=== PATIENT | male | born 1945 | race Caucasian/White ===

== ENCOUNTER 2017-07-21 13:33 | Emergency (ER) | payer OTHER ==
[2017-07-21 13:49] VITALS: BP 117/63
--- NOTE | 2017-07-23 10:02 | UC ---
Johny Bernal Elizabeth, scribed for Mai Alcantara DO on 07/21/17 at 1409 . Head Injury HPI - HPI Summary HPI Summary: This patient is a 71 year old M presenting to [facility] with a chief complaint of head injury and scalp laceration since 03:00 this morning. The patient reports that he got up at 03:00 to use the bathroom and he lost consciousness and fell. The patient is unsure how long he lost consciousness or what he hit his head on. The patient rates the pain 1/10 in severity. Symptoms aggravated by nothing. Symptoms alleviated by nothing. Patient reports neck pain. Patient denies headache, vision changes, dizziness, nausea, vomiting, hearing changes, and fatigue. The patient started amoxicillin 1 day ago for probable lyme disease and reports dizziness and 104 degree fever yesterday. - History Of Current Complaint Chief Complaint: UCHeadInjury Stated Complaint: FACE LACERATIONS Time Seen by Provider: 07/21/17 13:58 Hx Obtained From: Patient Mechanism Of Injury: fall from standing position Onset/Duration: Sudden Onset, Lasting Hours - since 03:00, Still Present Severity Currently: Mild Severity Initially: Mild Pain Intensity: 1 Pain Scale Used: 0-10 Numeric Aggravating Factor(s): Nothing Alleviating Factor(s): Nothing Associated Signs And Symptoms: Positive: LOC Duration Unknown, Neck Pain. Negative: Nausea, Vomiting - Allergies/Home Medications Allergies/Adverse Reactions: Allergies Allergy/AdvReac Type Severity Reaction Status Date / Time aspirin Allergy Nausea Verified 07/21/17 13:51 morphine Allergy Nausea Verified 07/21/17 13:51 NSAIDS (Non-Steroidal Allergy Nausea And Verified 07/21/17 13:50 Anti-Inflamma Vomiting sulfamethoxazole Allergy Unknown Verified 07/21/17 13:51 [From Bactrim] Reaction Details trimethoprim [From Bactrim] Allergy Unknown Verified 07/21/17 13:51 Reaction Details GLUTEIN FREE Allergy HELPS -= Uncoded 05/13/14 11:02 NOT A REAL ALLERGY Home Medications: Home Medications Amoxicillin 500 mg PO 07/21/17 [History] PMH/Surg Hx/FS Hx/Imm Hx Other Endocrine History: RA - Surgical History Surgical History: Yes Surgery Procedure, Year, and Place: KNEE SURGERY 4 (1- Rt & 2 Lt) TIMES,. 2001 RIGHT KNEE SURGERY, [facility] [place]. 2012 LEFT KNEE SURGERY TO REMOVE BONE SPUR, [facility] [place]. 1985 LEFT KNEE SURGERY, [place]. 2003 LEFT INGUINAL HERNIA REPAIR, [facility] [place] - Family History Known Family History: Positive: Other - CA of various types - Social History Alcohol Use: None Substance Use Type: None Smoking Status (MU): Never Smoked Tobacco - Immunization History Most Recent Influenza Vaccination: 2012 Most Recent Tetanus Shot: 2009 Most Recent Pneumonia Vaccination: 2011 Review of Systems Eyes: Negative - NEGATIVE BLURRED VISION Gastrointestinal: Negative - NEGATIVE VOMITING, NEGATIVE NAUSEA Musculoskeletal: Other: - neck pain Neurological: Negative - NEGATIVE HEADACHE, NEGATIVE DIZZINESS, NEGATIVE VISION CHANGES, NEGATIVE HEARING CHANGES All Other Systems Reviewed And Are Negative: Yes Physical Exam - Summary Physical Exam Summary: Appearance: Well-Appearing, No Pain Distress, Well-Nourished Eyes: conjunctiva clear, no discharge ENT: Hearing grossly normal, no muffled/hoarse voice. Neck: Normal, Supple Head: 3 scabbed over lacerations on left forehead Respiratory/Lung Sounds: Lungs clear, Normal breath sounds, No respiratory distress, No accessory muscle use Cardiovascular: RRR, No murmur Musculoskeletal: Normal Neurological: A&Ox3, CN II-XII INTACT, SENSORY MOTOR INTACT, REFLEXES INTACT, NO CEREBELLAR SIGNS, FACIAL SYMMETRY, NEGATIVE ROMBERG, NORMAL GAIT Psychiatric: Normal, age appropriate behavior Skin: Normal, Warm, Dry, Normal color Triage Information Reviewed: Yes Vital Signs: Initial Vital Signs Temp 98.5 F 07/21/17 13:41 Pulse 77 07/21/17 13:41 Resp 16 07/21/17 13:41 BP 117/63 07/21/17 13:41 Pulse Ox 99 07/21/17 13:41 Vital Signs Reviewed: Yes Head Injury Course/Dx - Course Course Of Treatment: This patient is a 71 year old M reporting head injury and scalp laceration after losing consciousness and falling at 03:00. The lacerations have scabbed over at time of evaluation. Due to the patients head injury and scalp laceration, a CT Brain is required. Since CT is unavailable her today, the patient will be discharged and is urged to go to the ER for a CT scan. The patient is agreeable with this plan. Medications reviewed. Allergies reviewed. - Differential Dx/Diagnosis Provider Diagnoses: laceration, syncope, cervical strain, geriatric head injury Discharge - Sign-Out/Discharge Documenting (check all that apply): Discharge/Admit/Transfer - Discharge Plan Condition: Stable Disposition: HOME Discharge Disposition Comment: discharge home Patient Education Materials: Lyme Disease (ED), Cervical Strain (ED), Laceration (ED), Syncope (ED), Head Injury (ED) Referrals: Santos Haas MD [Primary Care Provider] - Additional Instructions: It is standard of care for anyone over the age of 65 with a head injury to receive a CT scan of the brain. Please go to the ER immediately for further evaluation and treatment. The documentation as recorded by the Johny stevens Elizabeth accurately reflects the service I personally performed and the decisions made by , Mai Alcantara DO.
== END 2017-07-21 14:33 | disposition home or self-care (01) ==
LOC: UCEAST 13:33
DX: S01.01XA Laceration without foreign body of scalp, initial encounter (principal); S16.1XXA Strain of muscle, fascia and tendon at neck level, initial encounter; S09.90XA Unspecified injury of head, initial encounter; W18.30XA Fall on same level, unspecified, initial encounter; Y93.89 Activity, other specified; Y92.009 Unspecified place in unspecified non-institutional (private) residence as the place of occurrence of the external cause; R55 Syncope and collapse; M06.9 Rheumatoid arthritis, unspecified; Z88.6 Allergy status to analgesic agent; Z88.5 Allergy status to narcotic agent; Z88.2 Allergy status to sulfonamides; Z80.9 Family history of malignant neoplasm, unspecified
CPT/HCPCS: 99212; G0463

== ENCOUNTER 2017-07-21 17:08 | Emergency (ER) | payer OTHER ==
--- NOTE | 2017-07-21 18:24 | RAD ---
HISTORY: Fall w/ head injury COMPARISONS: July 18, 2011 TECHNIQUE: Multiple contiguous axial CT scans were obtained of the head without intravenous contrast. FINDINGS: HEMORRHAGE/INFARCT: There is no hemorrhage or acute infarct. MASSES/SHIFT: There is no mass or shift. EXTRA-AXIAL SPACES: There are no extra-axial fluid collections. SULCI AND VENTRICLES: The sulci and ventricles are normal in size and position for the patient's stated age. CEREBRUM: There are no focal parenchymal abnormalities. BRAINSTEM: There are no focal parenchymal abnormalities. CEREBELLUM: There are no focal parenchymal abnormalities. VESSELS: The vessels are grossly normal. PARANASAL SINUSES: The paranasal sinuses are clear. ORBITS: The orbits are unremarkable. BONES AND SOFT TISSUE: No bone or soft tissue abnormalities are noted. OTHER: None IMPRESSION: NO ACUTE INTRACRANIAL PATHOLOGY.
[2017-07-21 20:39] VITALS: BP 123/74
--- NOTE | 2017-08-07 11:10 | ED ---
Rick Bernal Gabriel, scribed for Harry Mcelroy MD on 07/21/17 at 1948 . Head Injury - HPI Summary HPI Summary: This patient is a 71 year old M presenting to [facility] s/p fall that occurred last night at 0300. Pt states last night he got up to urinate, felt dizzy but began urinating when he felt faint and fell. Pt hit his head but his is unsure if it was on the floor or a door frame. He denies total LOC. The patient rates the pain 2/10 in severity. Pt states he has had concussions in the past but has had no sx such as feeling out of it that accompanied prior ones. Pt states he believes has lyme due to recent neck stiffness, fever, and chills. His temp was 104 last night. Pt saw his PCP for these sx and was given amoxicillin and he began taking that yesterday. Pt was seen as [facility] [employer] and sent here for a CT. - History Of Current Complaint Chief Complaint: EDHeadInjury Stated Complaint: HEAD INJURY Time Seen by Provider: 07/21/17 19:38 Hx Obtained From: Patient Mechanism Of Injury: Fall From A Standing Position Onset/Duration: Still Present Onset of Pain: Immediate Severity Currently: Mild Severity Initially: Mild Pain Intensity: 2 Pain Scale Used: 0-10 Numeric Associated Signs And Symptoms: Other: - near LOC - Allergies/Home Medications Allergies/Adverse Reactions: Allergies Allergy/AdvReac Type Severity Reaction Status Date / Time aspirin Allergy Nausea Verified 07/21/17 17:16 morphine Allergy Nausea Verified 07/21/17 17:16 NSAIDS (Non-Steroidal Allergy Nausea And Verified 07/21/17 17:16 Anti-Inflamma Vomiting sulfamethoxazole Allergy Unknown Verified 07/21/17 17:16 [From Bactrim] Reaction Details trimethoprim [From Bactrim] Allergy Unknown Verified 07/21/17 17:16 Reaction Details GLUTEIN FREE Allergy HELPS -= Uncoded 07/21/17 17:16 NOT A REAL ALLERGY PMH/Surg Hx/FS Hx/Imm Hx Endocrine/Hematology History: Denies: Hx Diabetes Cardiovascular History: Reports: Hx Syncope Denies: Hx Embolism, Hx Hypertension, Hx Pacemaker/ICD Respiratory History: Denies: Hx Asthma History: Denies: Hx Renal Disease Musculoskeletal History: Reports: Hx Arthritis - MANY JOINTS PROBLEMS, WITH KNEES AND ANKLES, Hx Rheumatoid Arthritis Sensory History: Reports: Hx Contacts or Glasses, Hx Glaucoma Denies: Hx Hearing Aid Opthamlomology History: Reports: Hx Contacts or Glasses, Hx Glaucoma Psychiatric History: Denies: Hx Panic Disorder - Surgical History Surgery Procedure, Year, and Place: KNEE SURGERY 4 (1- Rt & 2 Lt) TIMES,. 2001 RIGHT KNEE SURGERY, [facility] [place]. 2012 LEFT KNEE SURGERY TO REMOVE BONE SPUR, [facility] [place]. 1985 LEFT KNEE SURGERY, [place]. 2003 LEFT INGUINAL HERNIA REPAIR, [facility] [place] Hx Anesthesia Reactions: Yes - SPINAL - DID NOT WORK X 2 - Immunization History Date of Tetanus Vaccine: PT STATES UNSURE Date of Influenza Vaccine: NONE Immunizations Up to Date: Yes Infectious Disease History: No Infectious Disease History: Denies: Traveled Outside the [place] in Last 30 Days - Family History Known Family History: Negative: Respiratory Disease, Seizure Disorder - Social History Alcohol Use: None Substance Use Type: Reports: None Smoking Status (MU): Never Smoked Tobacco Review of Systems Positive: Fever, Chills, Other - fall w/ head injury Positive: Other - neck stiffness Neurological: Negative - LOC Positive: Syncope - near All Other Systems Reviewed And Are Negative: Yes Physical Exam - Summary Physical Exam Summary: Appearance: Well-appearing, no distress, Well-nourished Skin:There is a 2cm superficial abrasion, no bleeding. There is also a 4cm superficial abrasion above left eyebrow without bleeding, that is not tender or swollen. Head: Normal Head/Face inspection Eyes: Conjunctiva clear ENT: Normal inspection Neck: Supple, no nodes, no JVD. Respiratory: Lungs clear, Normal breath sounds, no respiratory distress Cardio: RRR, No murmur, pulses normal, brisk capillary refill Abdomen: soft, nontender, no guarding, no rebound Bowel sounds: present Musculoskeletal: Strength Intact/ ROM intact. No calf tenderness. No edema. Neuro: Alert, muscle tone normal, facial symmetry, speech normal, sensory/motor intact Psychological: Normal Triage Information Reviewed: Yes Vital Signs On Initial Exam: Initial Vitals Temp Pulse Resp BP Pulse Ox 99.2 F 70 16 138/81 98 07/21/17 17:12 07/21/17 17:12 07/21/17 17:12 07/21/17 17:12 07/21/17 17:12 Vital Signs Reviewed: Yes Diagnostics - Vital Signs Vital Signs Temp Pulse Resp BP Pulse Ox 07/21/17 17:12 99.2 F 70 16 138/81 98 - Laboratory Lab Statement: Any lab studies that have been ordered have been reviewed, and results considered in the medical decision making process. - CT CT brain CT Interpretation Completed By: Radiologist - NO ACUTE INTRACRANIAL PATHOLOGY. ED physician has reviewed this radiology report. Head Injury Course/Dx - Diagnoses Provider Diagnoses: Abrasion Discharge - Sign-Out/Discharge Documenting (check all that apply): Discharge/Admit/Transfer - Discharge Plan Condition: Stable Disposition: HOME Patient Education Materials: Abrasion (ED) Referrals: Santos Haas MD [Primary Care Provider] - 3 Days Additional Instructions: RETURN TO THE ER FOR ANY NEW OR WORSENING SYMPTOMS The documentation as recorded by the Rick stevens Gabriel accurately reflects the service I personally performed and the decisions made by Lilibeth cox Omari A, MD.
== END 2017-07-21 20:36 | disposition home or self-care (01) ==
LOC: ED 17:08
DX: S00.81XA Abrasion of other part of head, initial encounter (principal); W18.39XA Other fall on same level, initial encounter; Y92.002 Bathroom of unspecified non-institutional (private) residence as the place of occurrence of the external cause; R55 Syncope and collapse; R42 Dizziness and giddiness; Z79.899 Other long term (current) drug therapy; Z88.5 Allergy status to narcotic agent; Z88.6 Allergy status to analgesic agent; Z88.8 Allergy status to other drugs, medicaments and biological substances; M06.9 Rheumatoid arthritis, unspecified
CPT/HCPCS: 70450; 99282

== ENCOUNTER → 2018-03-11 05:38 | Day surgery (SDC) | payer OTHER ==
[~2018-03-11 05:38] MED LIST: Buffered Lidocaine 1% SYRIN* 1 ML/SYRINGE INTRADERM ONE; Bupivacaine 0.5% W/EPI SDV* 30 ML VIAL ONE; Dexamethasone TAB* 4 MG ONE; Dexamethasone TAB* 4 MG PO ONE; DiMENhydriNATE IV* 50 MG/ML VIAL IV PUSH PRN; Famotidine IV* 10 MG/ML 2 ML (20 mg) ONE; Famotidine TAB* 20 MG ONE; HYDROmorphone INJ1* 1 MG/ML SYRINGE IV PRN; KETAMINE HCL* 50 MG/ML 10 ML VIAL ONE; Lactated Ringers 1000 ML Bag* 1,000 ML IV SCH; Lidocaine 1% INJ* 10 MG/ML 30 ML SDV ONE; Lidocaine 2% PF * 5 ML VIAL ONE; Midazolam* 1 MG/ML 5 ML VIAL (5 MG) ONE; Naloxone* 0.4 MG/ML 1 ML VIAL IV PRN; Ondansetron INJ* 2 MG/ML VIAL IV ONE; Ondansetron ODT TAB* 4 MG ONE; PROCHLORPERAZINE INJ 5 MG/ML 2 ML VIAL IV PRN; Propofol* 500 MG/50 ML BTL ONE; ceFAZolin 2 GM PREMIX in ORs 2 GM/50 ML BAG IVPB ONE; fentaNYL* 50 MCG/ML 2 ML VIAL (100 MCG VIAL) IV PRN; fentaNYL* 50 MCG/ML 2 ML VIAL (100 MCG VIAL) ONE; oxyCODONE/Acetamin 5/325 MG* TAB PO PRN
[2018-03-11 10:57] VITALS: BP 153/90
--- NOTE | 2018-03-11 20:37 | OP ---
DATE OF OPERATION: 03/11/18 - [facility] DATE OF : 49 SURGEON: Willian Leal MD SLOT SERVICE SPECIALIST: Nita Samaniego NP ANESTHESIOLOGIST: Dr. Moe. ANESTHESIA: Local with monitored anesthesia care. PRE-OP DIAGNOSIS: Right inguinal hernia. POST-OP DIAGNOSIS: Right indirect inguinal hernia. OPERATIVE PROCEDURE: Open repair with mesh of a right indirect inguinal hernia. ESTIMATED BLOOD LOSS: Minimal. WOUND CLASSIFICATION: 1. COMPLICATIONS: None. DRAINS: None. SPECIMENS: None. DESCRIPTION OF PROCEDURE: Written informed consent was obtained, the right groin was marked with indelible ink and preoperative antibiotics were administered. The patient was taken to the operating room, placed in the supine position. Sequential compression devices and a warming blanket were applied. The right groin and lower abdomen were prepped and draped in usual sterile fashion. Time-out verification was completed. Initially, 0.25% Marcaine with epinephrine was infiltrated in the right groin and an oblique incision was made several fingerbreadths above the inguinal crease. Velma's fascia was divided and the external oblique aponeurosis was identified and opened in the direction of its fibers. The spermatic cord was encircled with 1 quarter-inch Artem drain at the pubic tubercle. With care, the direct space was evaluated. This appeared to be intact. The cord structures were then identified and with careful dissection of the cord , we were able to identify a rather large indirect inguinal hernia sac protruding down through the internal ring. This was from the structures up into the internal ring and reduced without difficulty. Next, the pre-cut Covidien ProGrip mesh was then placed and sutured to the pubic tubercle with a single 0 Vicryl suture. It was then placed in usual fashion to cover the direct and indirect space. I did cut this down slightly to fit his anatomy. No further sutures were placed. Hemostasis was assured. Additional Marcaine was infiltrated. The external oblique aponeurosis was closed with a running 3- 0 Vicryl suture. Velma's fascia was closed with a running 3-0 Vicryl suture. The skin was approximated with subcuticular 4-0 Vicryl suture. Steri-Strips and sterile dressings were applied. The patient tolerated the procedure well and was taken to the recovery room in stable condition. [id number]/[facility] #: [id number] [place]
== END | disposition home or self-care (01) ==
LOC: OR 05:38
PROVIDERS: ATTEND Surgery
DX: K40.90 Unilateral inguinal hernia, without obstruction or gangrene, not specified as recurrent (principal); L40.50 Arthropathic psoriasis, unspecified
CPT/HCPCS: A9270-GY; C1781; J0690; J2250; J2704; J3010; J8540

== ENCOUNTER 2019-11-16 18:40 | Observation (INO) ==
[2019-11-16 19:31] LABS: ABS Eosinophils 0.1 10^3/ul (0-0.6); ABS Lymphocytes 1.3 10^3/ul (1.0-4.8); ABS Monocytes 0.4 10^3/ul (0-0.8); ABS Neutrophils 5.8 10^3/ul (1.5-7.7); Eosinophil % 1.2 %; Hematocrit 41 % (42-52); Lymphocyte % 17.1 %; Mean Corpuscular HGB Conc 34 g/dL (31-36); Mean Corpuscular Hemoglobin 31 pg (27-31); Mean Corpuscular Volume 92 fL (80-94); Mean Platelet Volume 7.3 fL (7.4-10.4); Platelet Count 287 10^3/uL (150-450); Red Blood Count 4.47 10^6 /uL (4.18-5.48); Red Cell Distribution Width 15 % (10-15); White Blood Count 7.6 10^3/uL (3.5-10.8)
[2019-11-16 19:38] LABS: Activated Partial Thrombo Time 32.9 seconds (26.0-38.0); INR 1.16 (0.82-1.09)
[2019-11-16 19:51] LABS: Albumin 3.6 g/dL (3.2-5.2); Albumin/Globulin Ratio 0.9 (1-3); BUN/Creatinine Ratio 16.5 (8-20); Calcium 9.3 mg/dL (8.6-10.3); EGFR African American 86.1 (>60); EGFR Non-African American 71.2 (>60); Globulin 4.2 g/dL (2-4); Magnesium 2.1 mg/dL (1.9-2.7); Potassium 3.8 mmol/L (3.5-5.0); Total Bilirubin 0.4 mg/dL (0.2-1.0); Total Protein 7.8 g/dL (6.4-8.9)
[2019-11-16 19:53] LABS: Troponin I 0.01 ng/mL (<0.03)
[2019-11-16 20:20] LABS: TSH Ultra Thyroid Stim Horm 4.71 mcIU/mL (0.34-5.60)
[2019-11-16] MEDS ORDERED: Ondansetron 4 mg VIAL 2 MG/ML 2 ml VIAL IV PRN (21:21)
[2019-11-16] MEDS: NS 0.9% 1000 ml BAG 1,000 ML IV SCH (22:26)
[2019-11-17] MEDS ORDERED: Potassium Chlor 20 meq TAB.ER PO ONE (08:22)
[2019-11-17 10:07] LABS: HDL Cholesterol 54.5 mg/dL
[2019-11-17] MEDS ORDERED: Midazolam 5 mg/5 ml VIAL 1 mg/ml 5 ml VIAL (5 mg) ONE (12:07)
[2019-11-17] MEDS ORDERED: Flumazenil 0.5 mg/5 ml 0.1 MG/ML 5 ml VIAL ONE (12:07)
[2019-11-17] MEDS ORDERED: Naloxone 0.4 mg VIAL 0.4 mg/ml 1 ml VIAL ONE (12:07)
[2019-11-17] MEDS ORDERED: fentaNYL 100 mcg/2 ml 50 MCG/ML VIAL ONE (12:07)
[2019-11-17] MEDS: NS 0.9% 1000 ml BAG 1,000 ML IV SCH (15:17)
[2019-11-17 17:35] VITALS: BP 105/60
== END 2019-11-17 17:00 | disposition home or self-care (01) ==
LOC: MEDTELE 18:40 → ED 18:40 → MEDTELE 22:38
PROVIDERS: ADMIT Internal Medicine; ATTEND Internal Medicine

== ENCOUNTER 2020-02-12 00:03 | Inpatient (IN) ==
[2020-02-12] MEDS ORDERED: NS 0.9% 1000 ml BAG 2,000 ML IV ONE (01:00)
[2020-02-12 02:37] LABS: ABS Lymphocytes 1.2 10^3/ul (1.0-4.8); ABS Monocytes 0.5 10^3/ul (0-0.8); ABS Neutrophils 6.6 10^3/ul (1.5-7.7); Eosinophil % 0.2 %; Hematocrit 41 % (42-52); Hemoglobin 14.1 g/dL (14.0-18.0); Lymphocyte % 14.4 %; Mean Corpuscular HGB Conc 34 g/dL (31-36); Mean Corpuscular Hemoglobin 31 pg (27-31); Mean Corpuscular Volume 91 fL (80-94); Mean Platelet Volume 8.2 fL (7.4-10.4); Platelet Count 304 10^3/uL (150-450); Red Cell Distribution Width 14 % (10-15); White Blood Count 8.3 10^3/uL (3.5-10.8)
[2020-02-12 02:44] LABS: Albumin 3.9 g/dL (3.2-5.2); Anion Gap 9 mmol/L (2-11); CO2 Carbon Dioxide 29 mmol/L (22-32); Calcium 9.4 mg/dL (8.6-10.3); Chloride 96 mmol/L (101-111); Sodium 134 mmol/L (135-145)
[2020-02-12 02:50] LABS: ALT 11 U/L (7-52); AST 15 U/L (13-39); Activated Partial Thrombo Time 26.9 seconds (26.0-38.0); Albumin/Globulin Ratio 0.8 (1-3); Alkaline Phosphatase 69 U/L (34-104); BUN/Creatinine Ratio 18.3 (8-20); Blood Urea Nitrogen 17 mg/dL (6-24); C Reactive Protein 1.85 mg/L (<8.01); EGFR African American 96.6 (>60); EGFR Non-African American 79.9 (>60); Globulin 4.6 g/dL (2-4); Glucose 97 mg/dL (70-100); INR 1.18 (0.82-1.09); Total Protein 8.5 g/dL (6.4-8.9)
[2020-02-12 02:51] LABS: Troponin I 0.02 ng/mL (<0.03)
[2020-02-12 05:19] LABS: Urine Appearance Clear; Urine Bilirubin Negative (Negative); Urine Blood 1+ (Negative); Urine Color Yellow; Urine Glucose Negative (Negative); Urine Ketones 1+ (Negative); Urine Nitrite Negative (Negative); Urine Protein Negative (Negative); Urine Specific Gravity 1.023 (1.010-1.030); Urine Urobilinogen Negative (Negative)
[2020-02-12 05:22] LABS: Urine Bacteria Absent (Absent); Urine Red Blood Cell 1+(3-5/hpf) (Absent); Urine Squamous Epithelial Cell Present (Absent); Urine White Blood Cell Trace(0-5/hpf) (Absent)
[2020-02-12] MEDS ORDERED: Al Hydrox/Mg Hydrox/Simet LIQ 30 ML UDC PO PRN (08:52)
[2020-02-12] MEDS ORDERED: Enoxaparin 40 MG/0.4 ML SYR SUBCUT SCH (10:00)
[2020-02-12 12:43] LABS: TSH Ultra Thyroid Stim Horm 4.37 mcIU/mL (0.34-5.60)
[2020-02-12 12:52] LABS: Vitamin B12 602 pg/mL (180-914)
[2020-02-12 13:18] LABS: Thyroid Peroxidase Antibodies < 0.25 IU/mL (<9)
[2020-02-12] MEDS ORDERED: Gadoteridol (CONTRAST) 279.3 MG/ML 10 ML IV ONE (18:06)
[2020-02-12 19:04] LABS: Influenza A Molecular Negative (Negative); Influenza B Molecular Negative (Negative)
[2020-02-12] MEDS ORDERED: levETIRAcetam 1000MG IVPREMIX 1,000 MG/100 ML BAG IVPB ONE (20:30)
[2020-02-12] MEDS ORDERED: NS 0.9% IVPB SCH (21:00)
[2020-02-12] MEDS ORDERED: ACYCLOVIR IVPB SCH (21:00)
[2020-02-12] MEDS ORDERED: methylPREDNISolone 125 mg 1,000 MG in NS 0.9% 100 ml BAG 100 ML IV SCH (21:00)
[2020-02-12] MEDS ORDERED: Acyclovir IV 500 MG/10 ML 100 ML VIAL (500 MG) IVPB SCH (21:00)
[2020-02-12] MEDS: Potassium Chlor 10 meq TAB PO SCH (21:46)
[2020-02-12] MEDS ORDERED: methylPREDNISolone SOD SUCC 1,000 MG in NS 0.9% 100 ml BAG 100 ML IVPB SCH (21:50)
[2020-02-12] MEDS ORDERED: NS 0.9% 1000 ml BAG 1,000 ML IV SCH (22:15)
[2020-02-12] MEDS: Acyclovir IV 600 MG in NS 0.9% 100 ml BAG 100 ML IVPB SCH (22:45)
[2020-02-12] MEDS ORDERED: Pantoprazole VIAL 40 MG VIAL IV SCH (23:00)
[2020-02-13] MEDS: methylPREDNISolone SOD SUCC 1,000 MG in NS 0.9% 100 ml BAG 100 ML IVPB SCH ×2 (00:45→10:37)
[2020-02-13] MEDS: Acyclovir IV 600 MG in NS 0.9% 100 ml BAG 100 ML IVPB SCH ×3 (05:40→18:38)
[2020-02-13 06:14] LABS: ABS Lymphocytes 0.3 10^3/ul (1.0-4.8); ABS Neutrophils 8.5 10^3/ul (1.5-7.7); Hematocrit 43 % (42-52); Hemoglobin 14.7 g/dL (14.0-18.0); Lymphocyte % 3.6 %; Mean Corpuscular HGB Conc 34 g/dL (31-36); Mean Corpuscular Hemoglobin 31 pg (27-31); Mean Corpuscular Volume 92 fL (80-94); Platelet Count 340 10^3/uL (150-450); Red Blood Count 4.69 10^6 /uL (4.18-5.48); Red Cell Distribution Width 15 % (10-15); White Blood Count 8.8 10^3/uL (3.5-10.8)
[2020-02-13 06:32] LABS: BUN/Creatinine Ratio 17.2 (8-20); Calcium 9.5 mg/dL (8.6-10.3); EGFR African American 104.4 (>60); EGFR Non-African American 86.3 (>60); Potassium 3.7 mmol/L (3.5-5.0)
[2020-02-13] MEDS ORDERED: Potassium Chlor 20 meq TAB.ER PO ONE (07:24)
[2020-02-13] MEDS: levETIRAcetam 500 MG IVPREMIX 500 MG/100 ML BAG IV SCH ×2 (10:11→20:53)
[2020-02-13] MEDS: Cholecalciferol (VIT D3) 1,000 unit TAB PO SCH (10:40)
[2020-02-13] MEDS: Potassium Chlor 10 meq TAB PO SCH ×2 (10:41→20:05)
[2020-02-13] MEDS ORDERED: HYDROmorphone 0.5 MG/0.5 ML SYRINGE IV SLOW PU ONE (11:01)
[2020-02-13] MEDS ORDERED: HYDROmorphone 0.5 MG/0.5 ML SYRINGE ONE (11:06)
[2020-02-13 15:13] LABS: Body Fluid Source Cerebral Spinal
[2020-02-13 15:31] LABS: CSF Glucose 101 mg/dL (40-70)
[2020-02-13] MEDS ORDERED: fentaNYL 100 mcg/2 ml 50 MCG/ML VIAL ONE (16:35)
[2020-02-13 16:46] LABS: Body Fluid Mono 60 %
[2020-02-13] MEDS ORDERED: Ondansetron 4 mg VIAL 2 MG/ML 2 ml VIAL ONE (17:09)
[2020-02-13] MEDS: NS 0.9% 1000 ml BAG 1,000 ML IV SCH (18:23)
[2020-02-13 18:40] LABS: Body Fluid NRBC 0
[2020-02-13 20:19] LABS: Urine Appearance Cloudy; Urine Bacteria Absent (Absent); Urine Bilirubin Negative (Negative); Urine Blood 3+ (Negative); Urine Glucose Negative (Negative); Urine Ketones Negative (Negative); Urine Nitrite Negative (Negative); Urine Protein 2+(100 mg/dL) (Negative); Urine Red Blood Cell 3+(>10/hpf) (Absent); Urine Urobilinogen Negative (Negative); Urine White Blood Cell Absent (Absent)
[2020-02-13 21:14] LABS: Urine Color Red
[2020-02-13 21:18] LABS: Urine Specific Gravity > 1.030 (1.010-1.030)
[2020-02-14] MEDS: Acyclovir IV 600 MG in NS 0.9% 100 ml BAG 100 ML IVPB SCH (02:58)
[2020-02-14] MEDS: NS 0.9% 1000 ml BAG 1,000 ML IV SCH (05:08)
[2020-02-14] MEDS: levETIRAcetam 500 MG IVPREMIX 500 MG/100 ML BAG IV SCH (08:57)
[2020-02-14] MEDS: methylPREDNISolone SOD SUCC 1,000 MG in NS 0.9% 100 ml BAG 100 ML IVPB SCH (09:09)
[2020-02-14] MEDS: Cholecalciferol (VIT D3) 1,000 unit TAB PO SCH (09:10)
[2020-02-14] MEDS: Senna TAB 8.6 mg TAB PO PRN (09:11)
[2020-02-14] MEDS: Potassium Chlor 10 meq TAB PO SCH ×2 (09:12→19:40)
[2020-02-14 10:56] LABS: BUN/Creatinine Ratio 26.4 (8-20); EGFR Non-African American 107.3 (>60); Potassium 3.8 mmol/L (3.5-5.0)
[2020-02-14 10:57] LABS: EGFR African American 129.8 (>60); Magnesium 1.6 mg/dL (1.9-2.7)
[2020-02-14 13:04] LABS: Hematocrit 34 % (42-52); Hemoglobin 11.5 g/dL (14.0-18.0); Mean Corpuscular HGB Conc 33 g/dL (31-36); Mean Corpuscular Hemoglobin 30 pg (27-31); Mean Corpuscular Volume 91 fL (80-94); Mean Platelet Volume 8.3 fL (7.4-10.4); Platelet Count 260 10^3/uL (150-450); Red Blood Count 3.78 10^6 /uL (4.18-5.48); Red Cell Distribution Width 15 % (10-15); White Blood Count 21.6 10^3/uL (3.5-10.8)
[2020-02-14] MEDS: NS 0.45% 1000 ml BAG 1,000 ML IV SCH ×2 (13:23→21:35)
[2020-02-14 13:26] LABS: BUN/Creatinine Ratio 24.7 (8-20); Calcium 8.6 mg/dL (8.6-10.3); EGFR African American 101.7 (>60); Potassium 4.2 mmol/L (3.5-5.0)
[2020-02-14 13:27] LABS: ABS Basophils 0.1 10^3/ul (0-0.2); ABS Lymphocytes 0.4 10^3/ul (1.0-4.8); ABS Neutrophils 20.1 10^3/ul (1.5-7.7)
[2020-02-15] MEDS: NS 0.45% 1000 ml BAG 1,000 ML IV SCH (05:45)
[2020-02-15 08:26] LABS: ABS Lymphocytes 0.9 10^3/ul (1.0-4.8); ABS Monocytes 0.8 10^3/ul (0-0.8); ABS Neutrophils 10.6 10^3/ul (1.5-7.7); Hematocrit 36 % (42-52); Lymphocyte % 7.6 %; Mean Corpuscular HGB Conc 34 g/dL (31-36); Mean Corpuscular Hemoglobin 31 pg (27-31); Mean Corpuscular Volume 91 fL (80-94); Mean Platelet Volume 8.6 fL (7.4-10.4); Platelet Count 235 10^3/uL (150-450); Red Blood Count 3.88 10^6 /uL (4.18-5.48); Red Cell Distribution Width 15 % (10-15); White Blood Count 12.3 10^3/uL (3.5-10.8)
[2020-02-15 08:32] LABS: Albumin 3.1 g/dL (3.2-5.2); BUN/Creatinine Ratio 24.1 (8-20); Calcium 8.1 mg/dL (8.6-10.3); EGFR African American 116.7 (>60); EGFR Non-African American 96.4 (>60); Globulin 3.2 g/dL (2-4); Potassium 4.2 mmol/L (3.5-5.0); Total Bilirubin 0.6 mg/dL (0.2-1.0); Total Protein 6.3 g/dL (6.4-8.9)
[2020-02-15] MEDS: Potassium Chlor 10 meq TAB PO SCH (10:57)
[2020-02-15] MEDS: Cholecalciferol (VIT D3) 1,000 unit TAB PO SCH (10:57)
[2020-02-15] MEDS: Senna TAB 8.6 mg TAB PO PRN (10:57)
[2020-02-15] MEDS ORDERED: Acyclovir IV 500 MG/10 ML 100 ML VIAL (500 MG) IVPB SCH (14:00)
[2020-02-15] MEDS: Magnesium Hydroxide LIQ 30 ML UDC PO PRN (22:34)
[2020-02-16 08:54] LABS: ABS Lymphocytes 1.3 10^3/ul (1.0-4.8); ABS Monocytes 0.6 10^3/ul (0-0.8); ABS Neutrophils 5.9 10^3/ul (1.5-7.7); Eosinophil % 0.6 %; Hematocrit 38 % (42-52); Hemoglobin 12.8 g/dL (14.0-18.0); Lymphocyte % 16.3 %; Mean Corpuscular HGB Conc 34 g/dL (31-36); Mean Corpuscular Hemoglobin 31 pg (27-31); Mean Corpuscular Volume 91 fL (80-94); Mean Platelet Volume 8.4 fL (7.4-10.4); Nucleated Red Blood Cells % 0.1; Platelet Count 221 10^3/uL (150-450); Red Blood Count 4.12 10^6 /uL (4.18-5.48); Red Cell Distribution Width 15 % (10-15); White Blood Count 7.8 10^3/uL (3.5-10.8)
[2020-02-16 09:15] LABS: Albumin 3.3 g/dL (3.2-5.2); Albumin/Globulin Ratio 0.9 (1-3); BUN/Creatinine Ratio 23.3 (8-20); Calcium 8.2 mg/dL (8.6-10.3); EGFR African American 105.8 (>60); EGFR Non-African American 87.4 (>60); Globulin 3.6 g/dL (2-4); Total Bilirubin 0.7 mg/dL (0.2-1.0); Total Protein 6.9 g/dL (6.4-8.9)
[2020-02-16] MEDS: Cholecalciferol (VIT D3) 1,000 unit TAB PO SCH (10:14)
[2020-02-16] MEDS: Magnesium Hydroxide LIQ 30 ML UDC PO PRN ×2 (10:33→15:55)
[2020-02-16] MEDS ORDERED: NS 0.9% 1000 ml BAG 1,000 ML IV SCH (13:30)
[2020-02-16] MEDS: Senna TAB 8.6 mg TAB PO PRN (22:48)
[2020-02-17 06:36] LABS: ABS Eosinophils 0.1 10^3/ul (0-0.6); ABS Lymphocytes 0.8 10^3/ul (1.0-4.8); ABS Monocytes 0.6 10^3/ul (0-0.8); ABS Neutrophils 6.5 10^3/ul (1.5-7.7); Eosinophil % 1.1 %; Hematocrit 40 % (42-52); Hemoglobin 13.2 g/dL (14.0-18.0); Lymphocyte % 10.2 %; Mean Corpuscular HGB Conc 33 g/dL (31-36); Mean Corpuscular Hemoglobin 31 pg (27-31); Mean Corpuscular Volume 92 fL (80-94); Mean Platelet Volume 8.5 fL (7.4-10.4); Platelet Count 230 10^3/uL (150-450); Red Blood Count 4.34 10^6 /uL (4.18-5.48); Red Cell Distribution Width 15 % (10-15)
[2020-02-17 06:52] LABS: BUN/Creatinine Ratio 24.4 (8-20); Calcium 8.5 mg/dL (8.6-10.3); EGFR African American 111.7 (>60); EGFR Non-African American 92.4 (>60); Potassium 4.3 mmol/L (3.5-5.0)
[2020-02-17] MEDS: Cholecalciferol (VIT D3) 1,000 unit TAB PO SCH (09:19)
[2020-02-17 10:08] LABS: Anti-Glial/Neuronal Nuc Ab-1 A Negative titer (<1:240); Anti-Neuronal Nuclear Ab Type1 Negative titer (<1:240); Anti-Neuronal Nuclear Ab Type2 Negative titer (<1:240); Anti-Neuronal Nuclear Ab Type3 Negative titer (<1:240); CRMP-5 IgG Antibody Negative titer (<1:240); Purkinje Cell Cytoplasm Typ Tr Negative titer (<1:240); Purkinje Cell Cytoplasm Type 1 Negative titer (<1:240); Purkinje Cell Cytoplasm Type 2 Negative titer (<1:240)
[2020-02-17 12:04] VITALS: BP 114/67
[2020-02-17 16:30] LABS: HSV 1 PCR, CSF Negative (Negative); HSV 2 PCR, CSF Negative (Negative)
[2020-02-17 18:23] LABS: HSV 1 PCR, Blood Negative (Negative); HSV 2 PCR, Blood Negative (Negative)
[2020-02-18 01:39] LABS: Varicella Zoster Result Negative (Negative); Varicella Zoster Source CSF
[2020-02-19 18:05] LABS: Amphiphysin Ab, CSF Negative titer (<1:2); CRMP-5-IgG, CSF Negative titer (<1:2); PCA-1, CSF Negative titer (<1:2); PCA-2, CSF Negative titer (<1:2); PCA-Tr, CSF Negative titer (<1:2)
== END 2020-02-17 16:45 | disposition home or self-care (01) | DRG 100 ==
LOC: MEDTELE 00:03 → ED 00:03 → MEDTELE 11:53 → MED 15:36
PROVIDERS: ADMIT Internal Medicine; ATTEND Pediatrics

== ENCOUNTER 2020-06-07 06:05 | Observation (INO) ==
[~2020-06-07 06:05] MED LIST changes: +Buffered Lidocaine 1% SYRIN 1 ml INTRADERM ONE; -Buffered Lidocaine 1% SYRIN* 1 ML/SYRINGE INTRADERM ONE; -Bupivacaine 0.5% W/EPI SDV* 30 ML VIAL ONE; +Dexamethasone IV 4 MG/ML VIAL 1 ml VIAL IV SLOW PU ONE; -Dexamethasone TAB* 4 MG ONE; -Dexamethasone TAB* 4 MG PO ONE; -DiMENhydriNATE IV* 50 MG/ML VIAL IV PUSH PRN; +Famotidine IV 10 MG/ML 2 ml VIAL (20 mg) IV ONE; -Famotidine IV* 10 MG/ML 2 ML (20 mg) ONE; -Famotidine TAB* 20 MG ONE; -HYDROmorphone INJ1* 1 MG/ML SYRINGE IV PRN; -KETAMINE HCL* 50 MG/ML 10 ML VIAL ONE; -Lactated Ringers 1000 ML Bag* 1,000 ML IV SCH; +Lactated Ringers 1000 ml BAG 1,000 ML IV SCH; -Lidocaine 1% INJ* 10 MG/ML 30 ML SDV ONE; -Lidocaine 2% PF * 5 ML VIAL ONE; -Midazolam* 1 MG/ML 5 ML VIAL (5 MG) ONE; -Naloxone* 0.4 MG/ML 1 ML VIAL IV PRN; -Ondansetron INJ* 2 MG/ML VIAL IV ONE; -Ondansetron ODT TAB* 4 MG ONE; -PROCHLORPERAZINE INJ 5 MG/ML 2 ML VIAL IV PRN; -Propofol* 500 MG/50 ML BTL ONE; -ceFAZolin 2 GM PREMIX in ORs 2 GM/50 ML BAG IVPB ONE; -fentaNYL* 50 MCG/ML 2 ML VIAL (100 MCG VIAL) IV PRN; -fentaNYL* 50 MCG/ML 2 ML VIAL (100 MCG VIAL) ONE; -oxyCODONE/Acetamin 5/325 MG* TAB PO PRN
[2020-06-07] MEDS ORDERED: Famotidine IV 10 MG/ML 2 ml VIAL (20 mg) ONE (06:13)
[2020-06-07] MEDS ORDERED: Dexamethasone IV 4 MG/ML VIAL 1 ml VIAL ONE (06:13)
[2020-06-07] MEDS ORDERED: cefTRIAXone 2 GM ADDV.VIAL ONE (06:13)
[2020-06-07] MEDS ORDERED: Lidocaine 2% PF 5 ML VIAL ONE ×2 (06:58→07:03)
[2020-06-07] MEDS ORDERED: Propofol 10 MG/ML 20 ML BTL ONE (07:03)
[2020-06-07] MEDS ORDERED: Midazolam 2 mg/2 ml VIAL 1 mg/ml 2 ml VIAL (2 mg) ONE (07:04)
[2020-06-07] MEDS ORDERED: fentaNYL 100 mcg/2 ml 50 MCG/ML VIAL ONE (07:04)
[2020-06-07 07:11] LABS: INR 1.14 (0.82-1.09)
[2020-06-07] MEDS ORDERED: Phytonadione SUBCUT/IM Adult 10 MG/ML AMP (IM or SQ not preferred route) IM ONE (08:00)
[2020-06-07] MEDS ORDERED: fentaNYL 250 mcg/5 ml 50 MCG/ML 5 ml VIAL (250 MCG) ONE (08:05)
[2020-06-07] MEDS ORDERED: Phenylephrine 40 mcg/mL 10mL (400mcg) SYRINGE ONE ×2 (08:05→09:15)
[2020-06-07] MEDS ORDERED: EPHEDrine (Pressors) 50 MG/ML VIAL ONE (08:10)
[2020-06-07] MEDS ORDERED: Ondansetron 4 mg VIAL 2 MG/ML 2 ml VIAL ONE (08:16)
[2020-06-07] MEDS ORDERED: fentaNYL 100 mcg/2 ml 50 MCG/ML VIAL IV PRN (08:40)
[2020-06-07] MEDS ORDERED: HYDROcodone/ACETAMIN 5/325 mg TAB PO PRN (08:40)
[2020-06-07] MEDS ORDERED: Prochlorperazine 5 mg/ml 2 ml VIAL (10 mg) IV PRN (08:40)
[2020-06-07] MEDS ORDERED: Naloxone 0.4 mg VIAL 0.4 mg/ml 1 ml VIAL IV PRN (08:40)
[2020-06-07] MEDS ORDERED: oxyCODONE/Acetamin 5/325 mg TAB PO PRN (08:40)
[2020-06-07] MEDS: NS 0.9% 1,000 ML IV SCH ×2 (10:40→17:35)
[2020-06-07] MEDS ORDERED: Magnesium Hydroxide LIQ 30 ML UDC PO PRN (10:52)
[2020-06-07] MEDS: Potassium Chlor 10 meq TAB PO SCH (19:51)
[2020-06-08] MEDS: NS 0.9% 1,000 ML IV SCH (00:13)
[2020-06-08] MEDS: Potassium Chlor 10 meq TAB PO SCH (10:41)
[2020-06-08 16:12] VITALS: BP 129/60
== END 2020-06-08 11:45 | disposition home or self-care (01) ==
LOC: OR 06:05 → SSU 06:05
PROVIDERS: ADMIT Urology; ATTEND Urology

== ENCOUNTER 2022-07-11 15:50 | Observation (INO) ==
[2022-07-11 15:54] LABS: ABS Lymphocytes 1.6 10^3/uL (1.0-4.8); ABS Monocytes 0.6 10^3/uL (0.0-1.1); ABS Neutrophils 4.6 10^3/uL (1.5-7.6); Eosinophil % 0.4 %; Hematocrit 40.4 % (38-53); Hemoglobin 13.9 g/dL (13.2-16.3); Lymphocyte % 23.6 %; Mean Corpuscular Hemoglobin 31.7 pg (27-33); Mean Corpuscular Hgb Conc 34.4 g/dL (31-36); Mean Corpuscular Volume 92.2 fL (80-97); Mean Platelet Volume 7.4 fL (7.5-11.2); Nucleated Red Blood Cells % 0.1 /100 WBC (0.0-0.4); Platelet Count 288 10^3/uL (150-450); Red Blood Count 4.38 10^6/uL (4.06-5.63); White Blood Count 6.9 10^3/uL (3.6-10.2)
[2022-07-11 16:01] LABS: Activated Partial Thrombo Time 28.8 seconds (26.0-38.0); INR 1.24 (0.88-1.18)
[2022-07-11 16:29] LABS: Albumin 3.9 g/dL (3.2-5.2); Albumin/Globulin Ratio 1.1 (1-3); Calcium 9.4 mg/dL (8.6-10.3); Creatinine, Serum 0.82 mg/dL (0.67-1.17); Globulin 3.5 g/dL (2-4); HDL Cholesterol 63.8 mg/dL; Potassium 3.5 mmol/L (3.5-5.0); Total Bilirubin 0.8 mg/dL (0.2-1.0); Total Protein 7.4 g/dL (6.4-8.9); eGFR CKD-EPI 92.2 (>60)
[2022-07-11] MEDS ORDERED: NS 0.9% 1000 ml BAG 1,000 ML IV ONE (16:48)
[2022-07-11] MEDS ORDERED: Valproic Acid IV 750 MG in NS 0.9% 100 ml BAG 100 ML IVPB ONE (17:50)
[2022-07-11 18:02] LABS: Urine Appearance Clear; Urine Bilirubin Negative (Negative); Urine Blood Negative (Negative); Urine Color Yellow; Urine Glucose Negative (Negative); Urine Ketones Negative (Negative); Urine Nitrite Negative (Negative); Urine Protein Negative (Negative); Urine Urobilinogen Negative (Negative)
[2022-07-12 06:00] LABS: Calcium 8.6 mg/dL (8.6-10.3); Creatinine, Serum 0.76 mg/dL (0.67-1.17); Potassium 3.7 mmol/L (3.5-5.0); eGFR CKD-EPI 94.3 (>60)
[2022-07-12] MEDS ORDERED: Potassium Chlor 10 meq TAB PO SCH (09:00)
[2022-07-12 09:33] VITALS: BP 129/83
== END 2022-07-12 12:30 | disposition home or self-care (01) ==
LOC: EDHOLD 15:50 → ED 15:50 → SUATTDRO 21:45 → MED 07-12 01:25
PROVIDERS: ADMIT Internal Medicine; ATTEND Internal Medicine